=== PATIENT | male | born 1965 | race Caucasian/White ===

== ENCOUNTER 2016-04-11 15:56 | Emergency (ER) | payer OTHER ==
[~2016-04-11] VITALS: Ht 182.9 cm; Wt 110.0 kg
--- NOTE | 2016-04-11 16:00 | PD ---
HPI Chief Complaint: DAVIS ACT/ETOH Time Seen by Provider: 16:00 Travel History International Travel<30 days: No Contact w/Intl Traveler<30days: No Traveled to known affect area: No History of Present Illness HPI 50-year-old male brought in by [email or web address]. Patient is brought in under the Davis act. Patient has been drinking heavily today. Patient was pulled over earlier this morning I local police for DUI. He was brought to his own home, and was requesting to go to [facility], but they had no room for him. Patient gave his keys to his aunt and promised not to drive. Patient then made his way to the local [facility] where he was picked up earlier today. He again was laying on the ground "praying" to God for help with his alcohol issues. Patient was then brought to the emergency department under the Davis act. Patient denies any specific complaints of pain or other constitutional symptoms. Patient does have a history of withdrawal seizures in the past according to him. He has no known drug allergies. [facility] Past Medical History Medical History: Unable to Obtain Social History Alcohol Use: Yes Tobacco Use: Yes Substance Use: No Allergies-Medications (Allergen,Severity, Reaction): Coded Allergies: No Known Allergies (Unverified , 04/11/16) Reported Meds & Prescriptions Reported Meds & Active Scripts Active No Active Prescriptions or Reported Medications Review of Systems ROS Limitations: Intoxication Except as stated in HPI: all other systems reviewed are Neg General / Constitutional: No: Fever Eyes: No: Visual changes HENT: No: Headaches Cardiovascular: No: Chest Pain or Discomfort Respiratory: No: Shortness of Breath Gastrointestinal: No: Abdominal Pain Genitourinary: No: Dysuria Musculoskeletal: No: Pain Skin: No Rash Neurologic: No: Weakness Psychiatric: No: Depression Endocrine: No: Polydipsia Hematologic/Lymphatic: No: Easy Bruising Physical Exam Exam Limitations: Intoxication Narrative GENERAL: Disheveled, obviously intoxicated male in no acute distress. SKIN: Warm and dry. No signs of trauma. Normal color. Normal turgor. HEAD: Atraumatic. Normocephalic. EYES: Pupils equal and round. No scleral icterus. No injection or drainage. ENT: No nasal bleeding or discharge. Mucous membranes pink and moist. No obvious dental injury. Airway is patent. NECK: Trachea midline. No JVD. Supple. CARDIOVASCULAR: Regular rate and rhythm. RESPIRATORY: No accessory muscle use. Clear to auscultation. Breath sounds equal bilaterally. GASTROINTESTINAL: Abdomen soft, non-tender, nondistended. Hepatic and splenic margins not palpable. MUSCULOSKELETAL: Extremities without clubbing, cyanosis, or edema. No obvious deformities. NEUROLOGICAL: Awake and alert. No obvious cranial nerve deficits. Motor grossly within normal limits. Five out of 5 muscle strength in the arms and legs. Slurred speech. PSYCHIATRIC: Appropriate mood and affect; insight and judgment normal. Patient currently cooperative. Data Data Last Documented VS Vital Signs Date Time Temp Pulse Resp B/P Pulse Ox O2 Delivery O2 Flow Rate FiO2 04/11/16 18:05 91 20 155/98 94 Room Air 04/11/16 16:14 98.6 Orders Complete Blood Count With Diff (04/11/16 16:05) Comprehensive Metabolic Panel (04/11/16 16:05) Drug Screen, Random Urine (04/11/16 16:05) Iv Access Insert/Monitor (04/11/16 16:05) Alcohol (Ethanol) (04/11/16 16:05) Lorazepam Inj (Ativan Inj) (04/11/16 16:15) Sodium Chlor 0.9% 1000 Ml Inj (Ns 1000 M (04/11/16 16:05) Thiamine Inj (Thiamine Inj) (04/11/16 16:15) Chlordiazepoxide (Librium) (04/11/16 16:15) Diet Regular Basic (04/11/16 Dinner) Haloperidol Inj (Haldol Inj) (04/11/16 17:45) Diphenhydramine Inj (Benadryl Inj) (04/11/16 17:57) Psych Screen (04/11/16 18:41) Diphenhydramine Inj (Benadryl Inj) (04/11/16 19:00) Lorazepam Inj (Ativan Inj) (04/11/16 19:00) Labs Laboratory Tests Test 04/11/16 04/11/16 16:25 17:30 White Blood Count 9.0 TH/MM3 Red Blood Count 5.32 MIL/MM3 Hemoglobin 16.2 GM/DL Hematocrit 46.4 % Mean Corpuscular Volume 87.2 FL Mean Corpuscular Hemoglobin 30.4 PG Mean Corpuscular Hemoglobin 34.9 % Concent Red Cell Distribution Width 14.9 % Platelet Count 365 TH/MM3 Mean Platelet Volume 7.4 FL Neutrophils (%) (Auto) 53.5 % Lymphocytes (%) (Auto) 38.3 % Monocytes (%) (Auto) 5.4 % Eosinophils (%) (Auto) 2.2 % Basophils (%) (Auto) 0.6 % Neutrophils # (Auto) 4.8 TH/MM3 Lymphocytes # (Auto) 3.5 TH/MM3 Monocytes # (Auto) 0.5 TH/MM3 Eosinophils # (Auto) 0.2 TH/MM3 Basophils # (Auto) 0.1 TH/MM3 CBC Comment DIFF FINAL Differential Comment Sodium Level 143 MEQ/L Potassium Level 4.2 MEQ/L Chloride Level 106 MEQ/L Carbon Dioxide Level 25.5 MEQ/L Anion Gap 12 MEQ/L Blood Urea Nitrogen 9 MG/DL Creatinine 1.00 MG/DL Estimat Glomerular Filtration 79 ML/MIN Rate Random Glucose 100 MG/DL Calcium Level 8.5 MG/DL Total Bilirubin 0.2 MG/DL Aspartate Amino Transf 32 U/L (AST/SGOT) Alanine Aminotransferase 56 U/L (ALT/SGPT) Alkaline Phosphatase 104 U/L Total Protein 8.2 GM/DL Albumin 3.9 GM/DL Ethyl Alcohol Level 284 MG/DL Urine Opiates Screen NEG Urine Barbiturates Screen NEG Urine Amphetamines Screen NEG Urine Benzodiazepines Screen NEG Urine Cocaine Screen NEG Urine Cannabinoids Screen NEG MDM Medical Decision Making Medical Screen Exam Complete: Yes Emergency Medical Condition: Yes Differential Diagnosis Davis active. EtOH intoxication. Psychotic changes. Requesting rehabilitation. Narrative Course Patient is intoxicated but medically stable at time of exam. Labs ordered including CBC, CMP, serum alcohol level and urine drug screen. IV access is obtained and patient is given 1 mg lorazepam IV. Patient is given 25 mg Librium by mouth. Patient is given 1000 mL's normal saline bolus as well as 100 mg thiamine IV. 1740 hrs. patient is seen to be more agitated and having verbal outbursts to Chucky. Patient is given 5 mg Haldol IM, 2 mg Ativan IV, and 50 mg Benadryl IV. Security is called and a sitter is placed. CBC is normal. CMP is normal. Serum alcohol is 284. Return drug screen is negative across the board. 2000 hrs. the patient is now calm and resting with sitter in place. Spoke with psychiatric nursing staff regarding psych evaluation. This is felt to be necessary due to the patient's psychotic behavior. Patient was assessed by psych, and found to be psychiatrically stable. 2300 hrs. the patient will be kept until sober, and then discharged with referral to [facility]. Care the patient is assumed by Dr. Sen at 2300 hrs. Diagnosis Primary Impression: ETOH abuse Additional Impression: Medical clearance for psychiatric admission Referrals: [facility] Patient Instructions: Abuse of Alcohol (ED), General Instructions Additional Instructions: Patient was assessed by psych, and found to be psychiatrically stable. The patient will be kept until sober, and then discharged with referral to [facility]. Scripts No Active Prescriptions or Reported Meds Disposition: 01 DISCHARGE HOME Condition: Stable Jm Velasco Apr 11, 2016 16:00
[2016-04-11] MEDS ORDERED: SODIUM CHLOR 0.9% 1000 ML INJ 1,000 ML IV SCH (16:05)
[2016-04-11 16:14] VITALS: BP 153/104; PULSE 114; RESP 20; TEMP 98.6; O2SAT 98
[2016-04-11] MEDS ORDERED: THIAMINE INJ 100 MG in SODIUM CHLORIDE 0.9% INJ 100 ML IV ONE (16:15)
[2016-04-11] MEDS ORDERED: LORazepam 2 MG/ML VIAL IV ONE (16:15)
[2016-04-11] MEDS ORDERED: chlordiazePOXIDE 25 MG CAP PO PRN (16:15)
[2016-04-11 16:51] LABS: AUTOMATED NEUTROPHIL # 4.8 TH/MM3 (1.8-7.7); BASOPHIL # 0.1 TH/MM3 (0-0.2); BASOPHIL % 0.6 % (0.0-2.0); EOSINOPHIL # 0.2 TH/MM3 (0-0.4); EOSINOPHIL % 2.2 % (0.0-4.0); HEMATOCRIT 46.4 % (39.0-51.0); HEMO FLAGS DIFF FINAL; LYMPH % 38.3 % (9.0-44.0); LYMPHOCYTE # 3.5 TH/MM3 (1.0-4.8); MEAN CELL VOLUME 87.2 FL (80.0-100.0); MEAN CORPUSCULAR HEMOGLOBIN 30.4 PG (27.0-34.0); MEAN CORPUSCULAR HGB CONC 34.9 % (32.0-36.0); MONO % 5.4 % (0.0-8.0); NEUT % 53.5 % (16.0-70.0); PLATELET COUNT 365 TH/MM3 (150-450); RED BLOOD COUNT 5.32 MIL/MM3 (4.50-5.90); RED CELL DISTRIBUTION WIDTH 14.9 % (11.6-17.2)
[2016-04-11] MEDS ORDERED: HALOPERIDOL LACTATE 5 MG/ML AMP IM ONE (17:45)
[2016-04-11 17:46] LABS: ALKALINE PHOSPHATASE 104 U/L (45-117); ALT (GPT) 56 U/L (12-78); ANION GAP 12 MEQ/L (5-15); AST (GOT) 32 U/L (15-37); BICARBONATE 25.5 MEQ/L (21.0-32.0); BLOOD UREA NITROGEN 9 MG/DL (7-18); CHLORIDE 106 MEQ/L (98-107); GLOMERULAR FILTRATION RATE 79 ML/MIN (>89); POTASSIUM 4.2 MEQ/L (3.5-5.1); SODIUM (NA) 143 MEQ/L (136-145); TOTAL BILIRUBIN ADULT 0.2 MG/DL (0.2-1.0)
[2016-04-11 17:56] LABS: AMPHETAMINE, URINE NEG (NEG); BARBITURATES, URINE NEG (NEG); COCAINE, URINE NEG (NEG)
[2016-04-11] MEDS ORDERED: diphenhydrAMINE HCL 50 MG/ML VIAL ONE (17:57)
[2016-04-11 18:05] VITALS: BP 155/98; PULSE 91; RESP 20; O2SAT 94
--- NOTE | 2016-04-11 18:10 | PD ---
Data Data Last Documented VS Vital Signs Date Time Temp Pulse Resp B/P Pulse Ox O2 Delivery O2 Flow Rate FiO2 04/11/16 18:05 91 20 155/98 94 Room Air 04/11/16 16:14 98.6 Orders Complete Blood Count With Diff (04/11/16 16:05) Comprehensive Metabolic Panel (04/11/16 16:05) Drug Screen, Random Urine (04/11/16 16:05) Iv Access Insert/Monitor (04/11/16 16:05) Alcohol (Ethanol) (04/11/16 16:05) Lorazepam Inj (Ativan Inj) (04/11/16 16:15) Sodium Chlor 0.9% 1000 Ml Inj (Ns 1000 M (04/11/16 16:05) Thiamine Inj (Thiamine Inj) (04/11/16 16:15) Chlordiazepoxide (Librium) (04/11/16 16:15) Diet Regular Basic (04/11/16 Dinner) Haloperidol Inj (Haldol Inj) (04/11/16 17:45) Diphenhydramine Inj (Benadryl Inj) (04/11/16 17:57) Labs Laboratory Tests Test 04/11/16 04/11/16 16:25 17:30 White Blood Count 9.0 TH/MM3 Red Blood Count 5.32 MIL/MM3 Hemoglobin 16.2 GM/DL Hematocrit 46.4 % Mean Corpuscular Volume 87.2 FL Mean Corpuscular Hemoglobin 30.4 PG Mean Corpuscular Hemoglobin 34.9 % Concent Red Cell Distribution Width 14.9 % Platelet Count 365 TH/MM3 Mean Platelet Volume 7.4 FL Neutrophils (%) (Auto) 53.5 % Lymphocytes (%) (Auto) 38.3 % Monocytes (%) (Auto) 5.4 % Eosinophils (%) (Auto) 2.2 % Basophils (%) (Auto) 0.6 % Neutrophils # (Auto) 4.8 TH/MM3 Lymphocytes # (Auto) 3.5 TH/MM3 Monocytes # (Auto) 0.5 TH/MM3 Eosinophils # (Auto) 0.2 TH/MM3 Basophils # (Auto) 0.1 TH/MM3 CBC Comment DIFF FINAL Differential Comment Sodium Level 143 MEQ/L Potassium Level 4.2 MEQ/L Chloride Level 106 MEQ/L Carbon Dioxide Level 25.5 MEQ/L Anion Gap 12 MEQ/L Blood Urea Nitrogen 9 MG/DL Creatinine 1.00 MG/DL Estimat Glomerular Filtration 79 ML/MIN Rate Random Glucose 100 MG/DL Calcium Level 8.5 MG/DL Total Bilirubin 0.2 MG/DL Aspartate Amino Transf 32 U/L (AST/SGOT) Alanine Aminotransferase 56 U/L (ALT/SGPT) Alkaline Phosphatase 104 U/L Total Protein 8.2 GM/DL Albumin 3.9 GM/DL Ethyl Alcohol Level 284 MG/DL Urine Opiates Screen NEG Urine Barbiturates Screen NEG Urine Amphetamines Screen NEG Urine Benzodiazepines Screen NEG Urine Cocaine Screen NEG Urine Cannabinoids Screen NEG MDM Supervised Visit with PAIGE: Yes Narrative Course The history, exam, and medical decision-making in the associated midlevel provider note were completed with my assistance. I reviewed and agree with the findings presented. I attest that I had a [id number] encounter with the patient on the same day, and personally performed and documented my assessment and findings in the medical record. *My assessment and Findings: This is a 50-year-old male who presents to the emergency department having drank heavily today. He is brought in under Barraza' s act for being intoxicated in public. Patient was very agitated here, starting to be verbally abusive and combative towards staff. He was given 3 mg of IV Ativan, Haldol and Benadryl. He will be reassessed when clinically sober. Scripts No Active Prescriptions or Reported Meds Maryellen Angulo MD Apr 11, 2016 18:10
[2016-04-11] MEDS ORDERED: diphenhydrAMINE HCL 50 MG/ML VIAL IV PUSH ONE (19:00)
[2016-04-11] MEDS ORDERED: LORazepam 2 MG/ML VIAL IV PUSH ONE (19:00)
[2016-04-12 04:29] VITALS: BP 147/71
== END 2016-04-12 04:20 | disposition home or self-care (01) ==
LOC: NEPE 15:56 → NEPA 04-12 04:20
DX: F10.129 Alcohol abuse with intoxication, unspecified (principal); Z72.0 Tobacco use
CPT/HCPCS: 80053; 80307; 80320; 85025; 96365; 96372; 96375; 96376; 99284; J1200; J1630; J2060; J3411; J7030

== ENCOUNTER 2016-06-02 20:50 | Emergency (ER) | payer OTHER ==
--- NOTE | 2016-06-02 23:23 | PD ---
HPI Chief Complaint: Psychiatric Symptoms Time Seen by Provider: 23:20 Travel History International Travel<30 days: No Contact w/Intl Traveler<30days: No Traveled to known affect area: No History of Present Illness HPI Patient comes in under Rice act by police for allegedly stating that he is possessed by "demons" that cause him to drink excessively. Patient denies any homicidal or suicidal ideations. Denies any medical concerns. Denies any chest pain, breath, fevers, nausea, vomiting, headache, or abdominal pain. PFSH Past Medical History Medical History: Denies Significant Hx Social History Alcohol Use: Yes Tobacco Use: Yes Substance Use: Yes (ALCOHOL) Allergies-Medications (Allergen,Severity, Reaction): Coded Allergies: No Known Allergies (Unverified , 04/11/16) Reported Meds & Prescriptions Reported Meds & Active Scripts Active No Active Prescriptions or Reported Medications Review of Systems Except as stated in HPI: all other systems reviewed are Neg Physical Exam Narrative GENERAL: Well-developed, overly nourished, in no acute distress, and non-ill appearing. SKIN: Warm and dry. HEAD: Atraumatic. Normocephalic. EYES: Pupils equal and round. EOMI. No scleral icterus. No injection or drainage. ENT: No nasal bleeding or discharge. Mucous membranes pink and moist. NECK: Trachea midline. Supple. No nuclear rigidity. CARDIOVASCULAR: Regular rate and rhythm. No murmur appreciated. RESPIRATORY: No accessory muscle use. No respiratory distress. Clear to auscultation. Breath sounds equal bilaterally. MUSCULOSKELETAL: No obvious deformities. No clubbing. No cyanosis. No edema. Full range of motion. NEUROLOGICAL: Awake and alert. No obvious cranial nerve deficits. Motor grossly within normal limits. Normal speech. PSYCHIATRIC: Appropriate mood and affect. Data Data Last Documented VS Vital Signs Date Time Temp Pulse Resp B/P Pulse Ox O2 Delivery O2 Flow Rate FiO2 06/02/16 23:26 104 19 140/90 95 Room Air Orders Complete Blood Count With Diff (06/02/16 23:08) Comprehensive Metabolic Panel (06/02/16 23:08) Psych Screen (06/02/16 23:08) Drug Screen, Random Urine (06/02/16 23:08) Alcohol (Ethanol) (06/02/16 23:08) Salicylates (Aspirin) (06/02/16 23:08) Tylenol (Acetaminophen) (06/02/16 23:08) Potassium Chloride (Kcl) (06/03/16 02:15) Alcohol Withdrawal Asmt-Ciwa ONCE (06/03/16 02:07) Flumazenil Inj (Romazicon Inj) (06/03/16 02:15) Lorazepam (Ativan) (06/03/16 02:15) Lorazepam Inj (Ativan Inj) (06/03/16 02:15) Lorazepam (Ativan) (06/03/16 02:15) Lorazepam Inj (Ativan Inj) (06/03/16 02:15) Lorazepam Inj (Ativan Inj) (06/03/16 02:15) Lorazepam Inj (Ativan Inj) (06/03/16 02:15) Labs Laboratory Tests Test 06/03/16 00:48 White Blood Count 10.8 TH/MM3 Red Blood Count 5.09 MIL/MM3 Hemoglobin 15.1 GM/DL Hematocrit 43.5 % Mean Corpuscular Volume 85.4 FL Mean Corpuscular Hemoglobin 29.7 PG Mean Corpuscular Hemoglobin 34.8 % Concent Red Cell Distribution Width 14.5 % Platelet Count 265 TH/MM3 Mean Platelet Volume 7.9 FL Neutrophils (%) (Auto) 61.6 % Lymphocytes (%) (Auto) 30.2 % Monocytes (%) (Auto) 6.6 % Eosinophils (%) (Auto) 0.8 % Basophils (%) (Auto) 0.8 % Neutrophils # (Auto) 6.7 TH/MM3 Lymphocytes # (Auto) 3.3 TH/MM3 Monocytes # (Auto) 0.7 TH/MM3 Eosinophils # (Auto) 0.1 TH/MM3 Basophils # (Auto) 0.1 TH/MM3 CBC Comment DIFF FINAL Differential Comment Sodium Level 144 MEQ/L Potassium Level 3.3 MEQ/L Chloride Level 108 MEQ/L Carbon Dioxide Level 25.9 MEQ/L Anion Gap 10 MEQ/L Blood Urea Nitrogen 9 MG/DL Creatinine 0.99 MG/DL Estimat Glomerular Filtration 80 ML/MIN Rate Random Glucose 106 MG/DL Calcium Level 8.4 MG/DL Total Bilirubin 0.2 MG/DL Aspartate Amino Transf 24 U/L (AST/SGOT) Alanine Aminotransferase 31 U/L (ALT/SGPT) Alkaline Phosphatase 89 U/L Total Protein 7.6 GM/DL Albumin 3.9 GM/DL Salicylates Level 5.2 MG/DL Urine Opiates Screen NEG Acetaminophen Level LESS THAN 2.0 MCG/ML Urine Barbiturates Screen NEG Urine Amphetamines Screen NEG Urine Benzodiazepines Screen NEG Urine Cocaine Screen POS Urine Cannabinoids Screen NEG Ethyl Alcohol Level 160 MG/DL MDM Medical Decision Making Medical Screen Exam Complete: Yes Emergency Medical Condition: Yes Differential Diagnosis Alcohol abuse, alcohol intoxication, drug abuse, acute psychosis, adjustment disorder, electrolyte abnormality, other Narrative Course Patient was seen and examined. Labs were obtained and reviewed. Patient medically cleared for further treatment and evaluation by psych. Final disposition per psych. Diagnosis Primary Impression: Substance abuse Additional Impressions: ETOH abuse Hypokalemia Scripts No Active Prescriptions or Reported Meds Condition: Stable Clay Rousseau Jun 02, 2016 23:23
[2016-06-02 23:26] VITALS: BP 140/90; PULSE 104; RESP 19; O2SAT 95
[2016-06-03 01:03] LABS: AUTOMATED NEUTROPHIL # 6.7 TH/MM3 (1.8-7.7); BASOPHIL # 0.1 TH/MM3 (0-0.2); BASOPHIL % 0.8 % (0.0-2.0); EOSINOPHIL # 0.1 TH/MM3 (0-0.4); EOSINOPHIL % 0.8 % (0.0-4.0); HEMATOCRIT 43.5 % (39.0-51.0); HEMO FLAGS DIFF FINAL; LYMPH % 30.2 % (9.0-44.0); LYMPHOCYTE # 3.3 TH/MM3 (1.0-4.8); MEAN CELL VOLUME 85.4 FL (80.0-100.0); MEAN CORPUSCULAR HEMOGLOBIN 29.7 PG (27.0-34.0); MEAN CORPUSCULAR HGB CONC 34.8 % (32.0-36.0); MONO % 6.6 % (0.0-8.0); NEUT % 61.6 % (16.0-70.0); PLATELET COUNT 265 TH/MM3 (150-450); RED BLOOD COUNT 5.09 MIL/MM3 (4.50-5.90); RED CELL DISTRIBUTION WIDTH 14.5 % (11.6-17.2); WHITE BLOOD COUNT 10.8 TH/MM3 (4.0-11.0)
[2016-06-03 01:12] LABS: AMPHETAMINE, URINE NEG (NEG); BARBITURATES, URINE NEG (NEG); COCAINE, URINE POS (NEG)
[2016-06-03 01:54] LABS: ALT (GPT) 31 U/L (12-78); ANION GAP 10 MEQ/L (5-15); AST (GOT) 24 U/L (15-37); BICARBONATE 25.9 MEQ/L (21.0-32.0); BLOOD UREA NITROGEN 9 MG/DL (7-18); CHLORIDE 108 MEQ/L (98-107); GLOMERULAR FILTRATION RATE 80 ML/MIN (>89); POTASSIUM 3.3 MEQ/L (3.5-5.1); SODIUM (NA) 144 MEQ/L (136-145)
[2016-06-03 01:56] LABS: ALKALINE PHOSPHATASE 89 U/L (45-117); TOTAL BILIRUBIN ADULT 0.2 MG/DL (0.2-1.0)
[2016-06-03 02:10] LABS: ACETAMINOPHEN LESS THAN 2.0 MCG/ML (10.0-30.0)
[2016-06-03] MEDS ORDERED: POTASSIUM CHLORIDE 20 MEQ CONTROLLED RELEASE TAB PO ONE (02:15)
[2016-06-03] MEDS ORDERED: LORazepam 2 MG TAB PO PRN (02:15)
[2016-06-03] MEDS ORDERED: LORazepam 2 MG/ML VIAL IV PUSH PRN ×4 (02:15)
[2016-06-03] MEDS ORDERED: LORazepam 1 MG TAB PO PRN (02:15)
[2016-06-03] MEDS ORDERED: FLUMAZENIL 0.5 MG/5 ML VIAL IV PUSH PRN (02:15)
[2016-06-03 02:32] VITALS: BP 144/98; PULSE 92; RESP 19; O2SAT 97
[2016-06-03 06:49] VITALS: BP 150/89; PULSE 83; RESP 18; TEMP 97.8; O2SAT 97
[2016-06-03 11:41] VITALS: BP 160/101; PULSE 88
--- NOTE | 2016-06-03 13:09 | PD ---
History of Present Illness Chief Complaint: Psychiatric Symptoms Time Seen by Provider: 12:30 Travel History International Travel<30 Days: No Contact w/Intl Traveler<30days: No Known affected area: No Legal Status Legal Status: Rice Act Rice Act Signed By: Harlan Blackwell History of Present Illness: This is a 50-year-old male with a long history of alcohol abuse. He also has a history of cocaine abuse. Reportedly he is a registered sex offender. He was observed to be masturbating in the emergency department last night, repeatedly. At this time however, he states he is not being possessed by demons, as he did according to the Rice act. He is calm and pleasant and cooperative. He denies suicidal or homicidal ideation. His cognition is grossly intact and felt to be baseline. He does not show clinical evidence of intoxication at this time. He is verbally vangie for safety. He would like to return home and does not appear to meet inpatient criteria or Rice act criteria. PFSH Past Medical History Medical History: Denies Significant Hx Diminished Hearing: Yes Tetanus Vaccination: Unknown Influenza Vaccination: No Past Surgical History Surgical History: No Previous Surgery Psychiatric History Psychiatric History Hx Psychiatric Treatment: PATIENT DENIES History of Inpatient Treatment: No Guns or firearms in home: No Social History Hx Alcohol Use: Yes Hx Tobacco Use: Yes Hx Substance Use: Yes (2-4 BOTTLES RUM) Substance Use Type: Alcohol Hx of Substance Use Treatment: No Allergies-Medications (Allergen,Severity, Reaction): Coded Allergies: No Known Allergies (Unverified , 04/11/16) Reported Meds & Prescriptions Reported Meds & Active Scripts Active No Active Prescriptions or Reported Medications Review of Systems ROS Limitations: Clinical Condition Except as stated in HPI: all other systems reviewed are Neg Exam Exam Limitations: Clinical Condition Alert: Yes [place]: Person, Place, Date, Situation Mood: Calm Affect: Euthymic Speech: Clear, Logical Eye Contact: Normal Memory Intact: Immediate, Recent, Remote Delusions: No Insight/Judgement Impaired due to alcohol and substance abuse but otherwise adequate. MDM Medical Decision Making Medical Record Reviewed: Yes Assessment/Plan 50-year-old male with a history of drug and alcohol abuse. Currently denies suicidal or homicidal ideation or psychotic symptoms. His Rice act is being lifted and he is being discharged home per his request. He does not meet criteria for Rice act or inpatient admission. He is no longer intoxicated. He is verbally vangie for safety as well. He was instructed to discontinue the use of alcohol and illicit drugs and referred for AA and NA treatment. Orders Complete Blood Count With Diff (06/02/16 23:08) Comprehensive Metabolic Panel (06/02/16 23:08) Psych Screen (06/02/16 23:08) Drug Screen, Random Urine (06/02/16 23:08) Alcohol (Ethanol) (06/02/16 23:08) Salicylates (Aspirin) (06/02/16 23:08) Tylenol (Acetaminophen) (06/02/16 23:08) Potassium Chloride (Kcl) (06/03/16 02:15) Alcohol Withdrawal Asmt-Ciwa ONCE (06/03/16 02:07) Flumazenil Inj (Romazicon Inj) (06/03/16 02:15) Lorazepam (Ativan) (06/03/16 02:15) Lorazepam Inj (Ativan Inj) (06/03/16 02:15) Lorazepam (Ativan) (06/03/16 02:15) Lorazepam Inj (Ativan Inj) (06/03/16 02:15) Lorazepam Inj (Ativan Inj) (06/03/16 02:15) Lorazepam Inj (Ativan Inj) (06/03/16 02:15) Diet Regular Basic (06/03/16 Breakfast) Diet Regular Basic (06/03/16 Lunch) Results Vital Signs Date Time Temp Pulse Resp B/P Pulse Ox O2 Delivery O2 Flow Rate FiO2 06/03/16 11:41 88 160/101 06/03/16 06:49 97.8 83 18 150/89 97 Room Air 06/03/16 02:32 92 19 144/98 97 Room Air 06/02/16 23:26 104 19 140/90 95 Room Air Laboratory Tests Test 06/03/16 00:48 White Blood Count 10.8 Red Blood Count 5.09 Hemoglobin 15.1 Hematocrit 43.5 Mean Corpuscular Volume 85.4 Mean Corpuscular Hemoglobin 29.7 Mean Corpuscular Hemoglobin 34.8 Concent Red Cell Distribution Width 14.5 Platelet Count 265 Mean Platelet Volume 7.9 Neutrophils (%) (Auto) 61.6 Lymphocytes (%) (Auto) 30.2 Monocytes (%) (Auto) 6.6 Eosinophils (%) (Auto) 0.8 Basophils (%) (Auto) 0.8 Neutrophils # (Auto) 6.7 Lymphocytes # (Auto) 3.3 Monocytes # (Auto) 0.7 Eosinophils # (Auto) 0.1 Basophils # (Auto) 0.1 CBC Comment DIFF FINAL Differential Comment Sodium Level 144 Potassium Level 3.3 Chloride Level 108 Carbon Dioxide Level 25.9 Anion Gap 10 Blood Urea Nitrogen 9 Creatinine 0.99 Estimat Glomerular Filtration 80 Rate Random Glucose 106 Calcium Level 8.4 Total Bilirubin 0.2 Aspartate Amino Transf 24 (AST/SGOT) Alanine Aminotransferase 31 (ALT/SGPT) Alkaline Phosphatase 89 Total Protein 7.6 Albumin 3.9 Salicylates Level 5.2 Urine Opiates Screen NEG Acetaminophen Level LESS THAN 2.0 Urine Barbiturates Screen NEG Urine Amphetamines Screen NEG Urine Benzodiazepines Screen NEG Urine Cocaine Screen POS Urine Cannabinoids Screen NEG Ethyl Alcohol Level 160 Diagnosis Primary Impression: Substance abuse Additional Impressions: ETOH abuse Hypokalemia Departure Forms: Tests/Procedures Patient Instructions: General Instructions, Cocaine Abuse (ED), Alcohol Intoxication (ED), Abuse of Alcohol (ED) Additional Instructions: RETURN TO ED FOR ANY WORSENING Prescriptions No Active Prescriptions or Reported Meds Disposition: 01 DISCHARGE HOME Condition: Stable Problem Qualifiers Johnathan Galarza MD Jun 03, 2016 13:09
== END 2016-06-03 13:31 | disposition home or self-care (01) ==
LOC: NEDAMB 20:50 → NEPJ 06-03 13:31
DX: F19.10 Other psychoactive substance abuse, uncomplicated (principal); F10.10 Alcohol abuse, uncomplicated; E87.6 Hypokalemia; Y90.6 Blood alcohol level of 120-199 mg/100 ml
CPT/HCPCS: 80053; 80307; 85025; 96374; 99283; J2060

== ENCOUNTER 2016-10-24 11:43 | Emergency (ER) | payer SELFPAY ==
[~2016-10-24] VITALS: Ht 182.9 cm; Wt 110.0 kg
[2016-10-24 11:48] VITALS: BP 189/100; PULSE 98; RESP 18; TEMP 98.2; O2SAT 98
--- NOTE | 2016-10-24 11:54 | PD ---
Physical Exam Time Seen by Provider: 11:54 Narrative 50 y/o male here with R sided dental pain/swelling for one week. Vital signs reviewed. Seen at triage desk. Awaiting bed placement. Data Data Last Documented VS Vital Signs Date Time Temp Pulse Resp B/P Pulse Ox O2 Delivery O2 Flow Rate FiO2 10/24/16 11:48 98.2 98 18 189/100 98 MDM Medical Record Reviewed: Yes Supervised Visit with PAIGE: No Scripts No Active Prescriptions or Reported Meds Brad Aguilar Oct 24, 2016 11:54
== END 2016-10-24 12:09 | disposition left against medical advice (07) ==
LOC: NEPK 11:43
DX: K08.89 Other specified disorders of teeth and supporting structures (principal); R22.0 Localized swelling, mass and lump, head
CPT/HCPCS: 99281